=== PATIENT | female | born 2000 ===

== ENCOUNTER 2021-08-07 17:23 | Inpatient (IN) ==
[~2021-08-07 17:23] MED LIST: *HR* Nalbuphine 10 MG/ML AMPUL IV PRN; Famotidine 20 MG/2 ML VIAL IVP PRN; Lidocaine 1% 20 ML MDV INFILT PRN; Metoclopramide 10 MG/2 ML VIAL IVP PRN; Naloxone 0.4 MG/ML INJ IVP PRN; Ondansetron 4 MG/2 ML VIAL IVP PRN; miSOPROStoL 25 MCG TABLET PO PRN
[2021-08-07 17:49] LABS: Basophils % 0.2 %; Eosinophils % 0.2 %; Hematocrit 39.2 % (35.3-44.9); Hemoglobin 12.9 g/dL (11.5-15.4); Immature Granulocytes % 0.8 % (0-4); Lymphocytes # 2.7 K/mcL (0.6-4.6); Lymphocytes % 16.9 %; Mean Corpuscular HGB Conc 32.9 g/dL (31.6-35.5); Mean Corpuscular Hemoglobin 27.1 pg (28.0-33.3); Mean Corpuscular Volume 82.4 fL (83.0-100.0); Monocytes # 0.7 K/mcL (0.0-1.3); Monocytes % 4.4 %; Neutrophils # 12.5 K/mcL (1.6-8.9); Platelet Count 297 K/mcL (140-400); Red Blood Count 4.76 M/mcL (3.82-4.97); Red Cell Distribution Width 14.5 % (11.5-14.5); Segmented Neutrophils % 77.5 %; White Blood Count 16.2 K/mcL (4.3-11.1)
[2021-08-07 17:59] LABS: Amphetamine Screen,Urine Negative ng/mL (Cutoff=1000); Barbiturate Screen,Urine Negative ng/mL (Cutoff=200); Benzodiazepines Screen,Urine Negative ng/mL (Cutoff=200); Cannabinoid Screen,Urine Positive ng/mL (Cutoff = 50); Cocaine Screen,Urine Negative ng/mL (Cutoff= 300); Opiate Screen,Urine Negative ng/mL (Cutoff=300); Phencyclidine Screen,Urine Negative ng/mL (Cutoff=25)
[2021-08-07] MEDS ORDERED: EPHEDrine 50 MG/ML VIAL IVP PRN (18:42)
[2021-08-07] MEDS ORDERED: Epidural Premix (fent/bupiv) 110 ML EP SCH (18:45)
[2021-08-07] MEDS: Ringers Solution, Lactated 1,000 ML IVC SCH ×2 (18:57→21:43)
[2021-08-07] MEDS ORDERED: Oxytocin 20 units/ LR 1000 mL 20 UNIT/1,000 ML BAG IVC SCH (20:15)
[2021-08-08] MEDS ORDERED: Lanolin 7 G OINT...G. TP PRN (00:02)
[2021-08-08] MEDS ORDERED: Measles/Mumps/Rubella Vacc 0.5 ML VIAL SQ PRN (00:02)
[2021-08-08] MEDS ORDERED: Benzocaine/Menthol 56 GM AEROSOL SPRAY TP PRN (00:02)
[2021-08-08] MEDS ORDERED: Ondansetron ODT 4 MG TAB.RAPDIS SL PRN (00:02)
[2021-08-08] MEDS ORDERED: Oxytocin 20 units/ LR 1000 mL 20 UNIT/1,000 ML BAG IVC SCH (00:15)
[2021-08-08] MEDS: Ibuprofen 600 MG TABLET PO SCH ×4 (04:43→23:14)
[2021-08-08] MEDS: Acetaminophen 325 MG TABLET PO SCH ×4 (04:43→23:14)
[2021-08-08] MEDS: Prenatal Vit/FA 1 EACH TABLET PO SCH (08:31)
[2021-08-08 09:45] LABS: Aspartate Amino Transferase 19 Units/L (13-39)
[2021-08-08 10:17] LABS: eGFR For African Americans > 60; eGFR For Non-African Americans > 60
[2021-08-09] MEDS: Acetaminophen 325 MG TABLET PO SCH ×2 (07:57→16:46)
[2021-08-09] MEDS: Ibuprofen 600 MG TABLET PO SCH ×2 (07:57→16:47)
[2021-08-09] MEDS: Prenatal Vit/FA 1 EACH TABLET PO SCH (07:58)
[2021-08-09] MEDS ORDERED: Nicotine 14 MG PATCH.TD24 TD SCH (09:30)
[2021-08-09] MEDS ORDERED: NIFEdipine XL (24 HR) 30 MG TAB.ER.24 PO SCH (10:15)
[2021-08-09 10:46] LABS: Basophils # 0.1 K/mcL (0.0-0.2); Basophils % 0.4 %; Eosinophils # 0.1 K/mcL (0.0-0.6); Eosinophils % 0.9 %; Hematocrit 32.2 % (35.3-44.9); Immature Granulocytes % 0.8 % (0-4); Lymphocytes # 2.5 K/mcL (0.6-4.6); Lymphocytes % 17.9 %; Mean Corpuscular HGB Conc 30.7 g/dL (31.6-35.5); Mean Corpuscular Hemoglobin 25.8 pg (28.0-33.3); Mean Corpuscular Volume 84.1 fL (83.0-100.0); Mean Platelet Volume 12.4 fL (9.4-12.4); Monocytes # 0.8 K/mcL (0.0-1.3); Monocytes % 5.9 %; Neutrophils # 10.3 K/mcL (1.6-8.9); Platelet Count 219 K/mcL (140-400); Red Blood Count 3.83 M/mcL (3.82-4.97); Red Cell Distribution Width 14.5 % (11.5-14.5); Segmented Neutrophils % 74.1 %; White Blood Count 13.9 K/mcL (4.3-11.1)
[2021-08-09 10:47] LABS: Hemoglobin 9.9 g/dL (11.5-15.4)
[2021-08-09 11:06] LABS: Alanine Aminotransferase 23 Units/L (7-52); Aspartate Amino Transferase 16 Units/L (13-39); BUN/Creatinine Ratio 11 (6-26); Blood Urea Nitrogen 7 mg/dL (6-20); Lactate Dehydrogenase 171 Units/L (140-271); Uric Acid 4.6 mg/dL (2.3-7.6); eGFR For African Americans > 60; eGFR For Non-African Americans > 60
[2021-08-09 20:06] VITALS: PULSE 93
[2021-08-09 20:10] VITALS: BP 136/85; TEMP 98.1; O2SAT 99
== END 2021-08-09 22:27 | disposition home or self-care (01) | DRG 806 ==
LOC: 1NENULAB → 1NENUNUR → 1NENUOBS 08-08 02:15
PROVIDERS: ADMIT Advanced Practice Midwife; ATTEND Advanced Practice Midwife